=== PATIENT | male | born 1980 | race Caucasian/White ===

== ENCOUNTER 2021-04-09 18:34 | Inpatient (IN) ==
[2021-04-09 19:57] LABS: Basophils # 0.1 K/mcL (0.0-0.2); Basophils % 0.8 %; Eosinophils # 0.1 K/mcL (0.0-0.6); Eosinophils % 1.1 %; Hematocrit 44.9 % (37.5-50.1); Hemoglobin 15.5 g/dL (12.9-16.9); Immature Granulocytes % 0.3 % (0-4); Lymphocytes # 1.3 K/mcL (0.6-4.6); Lymphocytes % 20.2 %; Mean Corpuscular HGB Conc 34.5 g/dL (31.6-35.5); Mean Corpuscular Hemoglobin 31.8 pg (28.0-33.3); Mean Corpuscular Volume 92.2 fL (83.0-100.0); Mean Platelet Volume 10.3 fL (9.4-12.4); Monocytes # 0.6 K/mcL (0.0-1.3); Neutrophils # 4.3 K/mcL (1.6-8.9); Platelet Count 248 K/mcL (140-400); Red Blood Count 4.87 M/mcL (4.19-5.50); Red Cell Distribution Width 11.9 % (11.5-14.5); Segmented Neutrophils % 67.6 %; White Blood Count 6.4 K/mcL (4.3-11.1)
[2021-04-09 20:27] LABS: Acetaminophen < 10 mcg/mL (10-20); BUN/Creatinine Ratio 15 (6-26); Blood Urea Nitrogen 18 mg/dL (6-20); Carbon Dioxide 21 mEq/L (23-29); Chloride 106 mEq/L (98-107); Chol/HDL Ratio 4.7 (0-4.9); Cholesterol 145 mg/dL (< 200); Ethanol < 10 mg/dL (Less than 10); Glucose 84 mg/dL (70-105); HDL Cholesterol 31 mg/dL (40-59); LDL Cholesterol,Calculated 91 mg/dL (< 100); Osmolality,Calculated 285 (280-300); Potassium 3.6 mEq/L (3.5-5.1); Salicylate < 2.5 mg/dL (15.0-30.0); Sodium 137 mEq/L (136-145); Triglycerides 115 mg/dL (< 150); eGFR For African Americans > 60 (> 60); eGFR For Non-African Americans > 60 (> 60)
[2021-04-09 20:33] LABS: Bilirubin,Urine Small (Negative); Blood,Urine Negative (Negative); Clarity,Urine Clear (Clear); Color,Urine Yellow (Yellow); Glucose,Urine (UA) Normal (Normal); Ketones,Urine 10 mg/dL (Negative); Leukocyte Esterase,Urine Trace (Negative); Mucus,Urine Few per lpf (None-Few); Nitrite,Urine Negative (Negative); PH,Urine 5.5 pH Units (5.0-8.0); Protein,Urine 50 mg/dL (Neg-Trace); RBC,Urine 0-3 per hpf (0-3); Specific Gravity,Urine > 1.030 (1.010-1.025); Squamous Epithelial Cell,Urine Few per hpf (None-Few)
[2021-04-09 20:36] LABS: Amphetamine Screen,Urine Negative ng/mL (Cutoff=1000); Barbiturate Screen,Urine Negative ng/mL (Cutoff=200); Benzodiazepines Screen,Urine Negative ng/mL (Cutoff=200); Cannabinoid Screen,Urine Negative ng/mL (Cutoff = 50); Cocaine Screen,Urine Negative ng/mL (Cutoff= 300); Opiate Screen,Urine Negative ng/mL (Cutoff=300); Phencyclidine Screen,Urine Negative ng/mL (Cutoff=25)
[2021-04-09 21:18] LABS: Estimated Average Glucose 114 mg/dl; Hemoglobin A1C 5.6 %
[2021-04-10 00:07] LABS: Adenovirus Not Detected (Not Detect); Bordetella Pertussis Not Detected (Not Detect); Chlamydophila pneumoniae Not Detected (Not Detect); Coronavirus 229E Not Detected (Not Detect); Coronavirus HKU1 Not Detected (Not Detect); Coronavirus NL63 Not Detected (Not Detect); Coronavirus OC43 Not Detected (Not Detect); Human Metapneumovirus Not Detected (Not Detect); Human Rhinovirus/Enterovirus Not Detected (Not Detect); Influenza A Subtype 2009 H1 Not Detected (Not Detect); Influenza B Not Detected (Not Detect); Mycoplasma pneumoniae Not Detected (Not Detect); Parainfluenza Virus 1 Not Detected (Not Detect); Parainfluenza Virus 2 Not Detected (Not Detect); Parainfluenza Virus 3 Not Detected (Not Detect); Parainfluenza Virus 4 Not Detected (Not Detect); Respiratory Syncytial Virus Not Detected (Not Detect); SARS-CoV-2 Not Detected (Not Detect)
[2021-04-10] MEDS ORDERED: Haloperidol Lactate 5 MG/ML VIAL IM PRN (00:44)
[2021-04-10] MEDS ORDERED: Acetaminophen 325 MG TABLET PO PRN (00:44)
[2021-04-10] MEDS ORDERED: *HR* LORazepam 2 MG/ML VIAL IM PRN (00:44)
[2021-04-10] MEDS: hydrOXYzine pamoate 25 MG CAPSULE PO PRN ×2 (01:32→20:52)
[2021-04-10] MEDS: QUEtiapine Fumarate 25 MG TABLET PO PRN ×2 (01:56→20:52)
[2021-04-10] MEDS: *HR* LORazepam 1 MG TABLET PO PRN (09:25)
[2021-04-10] MEDS: haloperidoL 5 MG TABLET PO PRN (09:26)
[2021-04-10] MEDS ORDERED: Mag Hydrox/Al Hydrox/Simeth 30 ML UDC PO PRN (12:44)
[2021-04-10] MEDS ORDERED: MOM Conc 10 ML UD.LIQ PO PRN (12:44)
[2021-04-10] MEDS ORDERED: haloperidoL 5 MG TABLET PO SCH (21:00)
[2021-04-11] MEDS: haloperidoL 5 MG TABLET PO PRN (10:04)
[2021-04-11] MEDS: *HR* LORazepam 1 MG TABLET PO PRN (10:04)
[2021-04-11] MEDS: Sennosides/Docusate Sodium TABLET PO SCH (11:19)
[2021-04-11] MEDS: *HR* Metformin 500 MG TABLET PO SCH (16:59)
[2021-04-11] MEDS: Lactobacillus 1 EACH CAP.SPRINK PO SCH (20:38)
[2021-04-11] MEDS: RisperiDAL 3 MG TABLET PO SCH (20:38)
[2021-04-11] MEDS: QUEtiapine Fumarate 25 MG TABLET PO PRN (21:44)
[2021-04-12] MEDS: Cholecalciferol (D-3) 1,000 UNIT (25MCG) TABLET PO SCH (09:00)
[2021-04-12] MEDS: Sennosides/Docusate Sodium TABLET PO SCH (09:00)
[2021-04-12] MEDS: haloperidoL 5 MG TABLET PO SCH (09:00)
[2021-04-12] MEDS: Lactobacillus 1 EACH CAP.SPRINK PO SCH ×2 (09:01→20:51)
[2021-04-12] MEDS: *HR* Metformin 500 MG TABLET PO SCH ×2 (09:01→16:45)
[2021-04-12] MEDS: Nicotine 7 MG PATCH.TD24 TD SCH (10:05)
[2021-04-12] MEDS: RisperiDAL 3 MG TABLET PO SCH (20:51)
[2021-04-12] MEDS: QUEtiapine Fumarate 25 MG TABLET PO PRN ×2 (20:52→22:02)
[2021-04-12] MEDS: hydrOXYzine pamoate 25 MG CAPSULE PO PRN (20:52)
[2021-04-13] MEDS: *HR* Metformin 500 MG TABLET PO SCH ×2 (14:49→17:13)
[2021-04-13] MEDS: Sennosides/Docusate Sodium TABLET PO SCH (14:49)
[2021-04-13] MEDS: Lactobacillus 1 EACH CAP.SPRINK PO SCH ×2 (14:49→21:35)
[2021-04-13] MEDS: Cholecalciferol (D-3) 1,000 UNIT (25MCG) TABLET PO SCH (14:49)
[2021-04-13] MEDS: haloperidoL 5 MG TABLET PO SCH (14:49)
[2021-04-13] MEDS: Nicotine 7 MG PATCH.TD24 TD SCH (14:49)
[2021-04-13] MEDS: RisperiDAL 3 MG TABLET PO SCH (21:35)
[2021-04-13] MEDS: QUEtiapine Fumarate 25 MG TABLET PO PRN (21:35)
[2021-04-13] MEDS: hydrOXYzine pamoate 25 MG CAPSULE PO PRN (22:51)
[2021-04-14] MEDS: Cholecalciferol (D-3) 1,000 UNIT (25MCG) TABLET PO SCH (08:34)
[2021-04-14] MEDS: Lactobacillus 1 EACH CAP.SPRINK PO SCH ×2 (08:35→20:58)
[2021-04-14] MEDS: *HR* Metformin 500 MG TABLET PO SCH ×2 (08:35→17:27)
[2021-04-14] MEDS: Sennosides/Docusate Sodium TABLET PO SCH (08:36)
[2021-04-14] MEDS: haloperidoL 5 MG TABLET PO SCH (08:36)
[2021-04-14] MEDS: Nicotine 7 MG PATCH.TD24 TD SCH ×2 (08:37→09:03)
[2021-04-14] MEDS: Divalproex (24 HR) 500 MG TABLET PO SCH (20:58)
[2021-04-14] MEDS: QUEtiapine Fumarate 25 MG TABLET PO PRN (20:58)
[2021-04-14] MEDS: risperiDONE 1 MG TABLET PO SCH (20:58)
[2021-04-15] MEDS: Lactobacillus 1 EACH CAP.SPRINK PO SCH ×2 (10:29→20:28)
[2021-04-15] MEDS: haloperidoL 5 MG TABLET PO SCH ×2 (10:29→18:46)
[2021-04-15] MEDS: Cholecalciferol (D-3) 1,000 UNIT (25MCG) TABLET PO SCH (10:29)
[2021-04-15] MEDS: Nicotine 7 MG PATCH.TD24 TD SCH ×2 (10:29→18:44)
[2021-04-15] MEDS: Sennosides/Docusate Sodium TABLET PO SCH (10:29)
[2021-04-15] MEDS: *HR* Metformin 500 MG TABLET PO SCH ×2 (10:29→17:30)
[2021-04-15] MEDS: QUEtiapine Fumarate 25 MG TABLET PO PRN (20:27)
[2021-04-15] MEDS: risperiDONE 1 MG TABLET PO SCH (20:28)
[2021-04-15] MEDS: Divalproex (24 HR) 500 MG TABLET PO SCH (20:28)
[2021-04-16] MEDS: Cholecalciferol (D-3) 1,000 UNIT (25MCG) TABLET PO SCH (09:25)
[2021-04-16] MEDS: *HR* Metformin 500 MG TABLET PO SCH ×2 (09:26→16:42)
[2021-04-16] MEDS: haloperidoL 5 MG TABLET PO SCH (09:26)
[2021-04-16] MEDS: Nicotine 7 MG PATCH.TD24 TD SCH (09:27)
[2021-04-16] MEDS: Lactobacillus 1 EACH CAP.SPRINK PO SCH ×2 (09:27→20:23)
[2021-04-16] MEDS: Sennosides/Docusate Sodium TABLET PO SCH (09:27)
[2021-04-16] MEDS: risperiDONE 1 MG TABLET PO SCH ×2 (09:29→20:23)
[2021-04-16] MEDS: Divalproex (24 HR) 500 MG TABLET PO SCH (20:21)
[2021-04-16] MEDS: QUEtiapine Fumarate 25 MG TABLET PO PRN (20:23)
[2021-04-17] MEDS: Lactobacillus 1 EACH CAP.SPRINK PO SCH ×2 (08:11→22:04)
[2021-04-17] MEDS: Sennosides/Docusate Sodium TABLET PO SCH (08:12)
[2021-04-17] MEDS: haloperidoL 5 MG TABLET PO SCH (08:12)
[2021-04-17] MEDS: Cholecalciferol (D-3) 1,000 UNIT (25MCG) TABLET PO SCH (08:12)
[2021-04-17] MEDS: *HR* Metformin 500 MG TABLET PO SCH ×2 (08:12→17:01)
[2021-04-17] MEDS: Nicotine 7 MG PATCH.TD24 TD SCH (08:13)
[2021-04-17] MEDS: risperiDONE 1 MG TABLET PO SCH ×2 (08:13→22:04)
[2021-04-17] MEDS: Divalproex (24 HR) 500 MG TABLET PO SCH (22:04)
[2021-04-18] MEDS: Lactobacillus 1 EACH CAP.SPRINK PO SCH ×2 (10:08→20:27)
[2021-04-18] MEDS: Cholecalciferol (D-3) 1,000 UNIT (25MCG) TABLET PO SCH (10:08)
[2021-04-18] MEDS: haloperidoL 5 MG TABLET PO SCH (10:08)
[2021-04-18] MEDS: risperiDONE 1 MG TABLET PO SCH ×2 (10:08→20:28)
[2021-04-18] MEDS: Sennosides/Docusate Sodium TABLET PO SCH (10:08)
[2021-04-18] MEDS: *HR* Metformin 500 MG TABLET PO SCH ×2 (10:08→16:37)
[2021-04-18] MEDS: Nicotine 7 MG PATCH.TD24 TD SCH (10:09)
[2021-04-18] MEDS: Divalproex (24 HR) 500 MG TABLET PO SCH (20:27)
[2021-04-18] MEDS: QUEtiapine Fumarate 25 MG TABLET PO PRN (20:28)
[2021-04-19] MEDS: Nicotine 7 MG PATCH.TD24 TD SCH (08:09)
[2021-04-19] MEDS: Lactobacillus 1 EACH CAP.SPRINK PO SCH ×2 (08:09→20:05)
[2021-04-19] MEDS: Sennosides/Docusate Sodium TABLET PO SCH (08:09)
[2021-04-19] MEDS: *HR* Metformin 500 MG TABLET PO SCH ×2 (08:09→16:57)
[2021-04-19] MEDS: Cholecalciferol (D-3) 1,000 UNIT (25MCG) TABLET PO SCH (08:09)
[2021-04-19] MEDS: risperiDONE 1 MG TABLET PO SCH ×2 (08:09→20:05)
[2021-04-19] MEDS: haloperidoL 5 MG TABLET PO SCH (08:09)
[2021-04-19] MEDS: Divalproex (24 HR) 500 MG TABLET PO SCH (20:05)
[2021-04-20] MEDS: QUEtiapine Fumarate 25 MG TABLET PO PRN ×2 (01:05→20:28)
[2021-04-20] MEDS: Sennosides/Docusate Sodium TABLET PO SCH ×2 (10:05→11:00)
[2021-04-20] MEDS: *HR* Metformin 500 MG TABLET PO SCH ×3 (10:06→16:02)
[2021-04-20] MEDS: risperiDONE 1 MG TABLET PO SCH ×3 (10:06→20:28)
[2021-04-20] MEDS: Lactobacillus 1 EACH CAP.SPRINK PO SCH ×3 (10:06→20:28)
[2021-04-20] MEDS: Cholecalciferol (D-3) 1,000 UNIT (25MCG) TABLET PO SCH ×2 (10:06→11:00)
[2021-04-20] MEDS: Nicotine 7 MG PATCH.TD24 TD SCH ×2 (10:06→16:17)
[2021-04-20] MEDS: haloperidoL 5 MG TABLET PO SCH ×2 (10:06→11:00)
[2021-04-20] MEDS: Divalproex (24 HR) 500 MG TABLET PO SCH (20:29)
[2021-04-21] MEDS: risperiDONE 1 MG TABLET PO SCH ×3 (08:49→20:27)
[2021-04-21] MEDS: haloperidoL 5 MG TABLET PO SCH (08:49)
[2021-04-21] MEDS: Sennosides/Docusate Sodium TABLET PO SCH (08:49)
[2021-04-21] MEDS: Lactobacillus 1 EACH CAP.SPRINK PO SCH ×2 (08:52→20:28)
[2021-04-21] MEDS: Nicotine 7 MG PATCH.TD24 TD SCH (08:52)
[2021-04-21] MEDS: Cholecalciferol (D-3) 1,000 UNIT (25MCG) TABLET PO SCH (08:52)
[2021-04-21] MEDS: *HR* Metformin 500 MG TABLET PO SCH ×2 (08:52→16:13)
[2021-04-21] MEDS: QUEtiapine Fumarate 25 MG TABLET PO PRN (20:27)
[2021-04-21] MEDS: Divalproex (24 HR) 500 MG TABLET PO SCH (20:28)
[2021-04-22] MEDS: Nicotine 7 MG PATCH.TD24 TD SCH (09:26)
[2021-04-22] MEDS: risperiDONE 1 MG TABLET PO SCH (09:27)
[2021-04-22] MEDS: Lactobacillus 1 EACH CAP.SPRINK PO SCH (09:28)
[2021-04-22] MEDS: *HR* Metformin 500 MG TABLET PO SCH ×2 (09:28→16:47)
[2021-04-22] MEDS: Sennosides/Docusate Sodium TABLET PO SCH (09:28)
[2021-04-22] MEDS: haloperidoL 5 MG TABLET PO SCH (09:28)
[2021-04-22] MEDS: Cholecalciferol (D-3) 1,000 UNIT (25MCG) TABLET PO SCH (09:28)
[2021-04-22 12:44] VITALS: BP 100/64; PULSE 67; TEMP 98; O2SAT 98
== END 2021-04-22 17:15 | disposition home or self-care (01) | DRG 750 ==
LOC: EMEROOARM 18:34 → 1ANU 04-10 00:33
PROVIDERS: ADMIT Psychiatry & Neurology Psychiatry; ATTEND Psychiatry & Neurology Psychiatry

== ENCOUNTER 2021-11-21 02:15 | Inpatient (IN) ==
[2021-11-21 03:08] LABS: Bilirubin,Urine Negative (Negative); Blood,Urine Negative (Negative); Clarity,Urine Clear (Clear); Color,Urine Light-Yellow (Yellow); Glucose,Urine (UA) Normal (Normal); Ketones,Urine Negative (Negative); Leukocyte Esterase,Urine Negative (Negative); Nitrite,Urine Negative (Negative); Protein,Urine Negative (Neg-Trace); Specific Gravity,Urine 1.018 (1.010-1.025); Urobilinogen,Urine Normal (Normal)
[2021-11-21 03:30] LABS: Amphetamine Screen,Urine Negative ng/mL (Cutoff=1000); Barbiturate Screen,Urine Negative ng/mL (Cutoff=200); Benzodiazepines Screen,Urine Negative ng/mL (Cutoff=200); Cannabinoid Screen,Urine Negative ng/mL (Cutoff = 50); Cocaine Screen,Urine Negative ng/mL (Cutoff= 300); Opiate Screen,Urine Negative ng/mL (Cutoff=300); Phencyclidine Screen,Urine Negative ng/mL (Cutoff=25)
[2021-11-21 03:43] LABS: Basophils # 0.1 K/mcL (0.0-0.2); Basophils % 0.9 %; Eosinophils # 0.1 K/mcL (0.0-0.6); Eosinophils % 1.4 %; Hematocrit 37.3 % (37.5-50.1); Hemoglobin 12.7 g/dL (12.9-16.9); Immature Granulocytes % 0.4 % (0-4); Lymphocytes # 1.9 K/mcL (0.6-4.6); Lymphocytes % 24.2 %; Mean Corpuscular Hemoglobin 32.2 pg (28.0-33.3); Mean Corpuscular Volume 94.7 fL (83.0-100.0); Mean Platelet Volume 10.6 fL (9.4-12.4); Monocytes % 12.4 %; Neutrophils # 4.7 K/mcL (1.6-8.9); Platelet Count 246 K/mcL (140-400); Red Blood Count 3.94 M/mcL (4.19-5.50); Red Cell Distribution Width 13.9 % (11.5-14.5); Segmented Neutrophils % 60.7 %; White Blood Count 7.8 K/mcL (4.3-11.1)
[2021-11-21 03:44] LABS: Acetaminophen < 10 mcg/mL (10-20); BUN/Creatinine Ratio 26 (6-26); Blood Urea Nitrogen 17 mg/dL (6-20); Calcium 9.3 mg/dL (8.6-10.3); Carbon Dioxide 28 mEq/L (23-29); Chloride 104 mEq/L (98-107); Chol/HDL Ratio 2.8 (0-4.9); Cholesterol 165 mg/dL (< 200); Ethanol < 10 mg/dL (Less than 10); Glucose 123 mg/dL (70-105); HDL Cholesterol 60 mg/dL (40-59); LDL Cholesterol,Calculated 74 mg/dL (< 100); Osmolality,Calculated 289 (280-300); Potassium 4.3 mEq/L (3.5-5.1); Salicylate < 2.5 mg/dL (15.0-30.0); Sodium 138 mEq/L (136-145); Triglycerides 156 mg/dL (< 150); eGFR For African Americans > 60 (> 60); eGFR For Non-African Americans > 60 (> 60)
[2021-11-21 04:23] LABS: Estimated Average Glucose 105 mg/dl; Hemoglobin A1C 5.3 %
[2021-11-21 05:19] LABS: Influenza A PCR Negative (Negative); Influenza B PCR Negative (Negative); Resp. Syncytial Virus PCR Negative (Negative)
[2021-11-21 05:21] LABS: SARS-CoV-2 by PCR (In House) Negative (Negative)
[2021-11-21] MEDS ORDERED: *HR* LORazepam 2 MG/ML VIAL IM PRN (06:45)
[2021-11-21] MEDS ORDERED: haloperidoL 5 MG TABLET PO PRN (06:45)
[2021-11-21] MEDS ORDERED: *HR* LORazepam 1 MG TABLET PO PRN (06:45)
[2021-11-21] MEDS ORDERED: Haloperidol Lactate 5 MG/ML VIAL IM PRN (06:45)
[2021-11-21] MEDS ORDERED: Mag Hydrox/Al Hydrox/Simeth 30 ML UDC PO PRN (11:36)
[2021-11-21] MEDS ORDERED: MOM Conc 10 ML UD.LIQ PO PRN (11:36)
[2021-11-21] MEDS ORDERED: QUEtiapine Fumarate 25 MG TABLET PO PRN (13:45)
[2021-11-21] MEDS ORDERED: risperiDONE 1 MG TABLET PO SCH (21:00)
[2021-11-21] MEDS: Divalproex (24 HR) 500 MG TABLET PO SCH (22:18)
[2021-11-22] MEDS ORDERED: risperiDONE 1 MG TABLET PO SCH (09:00)
[2021-11-22] MEDS: GuaiFENesin Liq 200 MG/10 ML UDC PO PRN ×2 (12:22→20:38)
[2021-11-22] MEDS: Divalproex (24 HR) 500 MG TABLET PO SCH (20:29)
[2021-11-22] MEDS: OLANZapine 10 MG TAB.RAPDIS PO SCH (20:30)
[2021-11-23] MEDS: OLANZapine 10 MG TAB.RAPDIS PO SCH ×2 (08:35→20:13)
[2021-11-23] MEDS: Divalproex (24 HR) 500 MG TABLET PO SCH (20:13)
[2021-11-23] MEDS: GuaiFENesin Liq 200 MG/10 ML UDC PO PRN (20:13)
[2021-11-24] MEDS: GuaiFENesin Liq 200 MG/10 ML UDC PO PRN ×2 (08:46→20:45)
[2021-11-24] MEDS: OLANZapine 10 MG TAB.RAPDIS PO SCH ×2 (08:46→20:43)
[2021-11-24] MEDS: Divalproex (24 HR) 500 MG TABLET PO SCH (20:42)
[2021-11-25] MEDS: OLANZapine 10 MG TAB.RAPDIS PO SCH ×2 (08:59→20:35)
[2021-11-25] MEDS: OLANZapine 5 MG TAB.RAPDIS PO SCH (17:36)
[2021-11-25] MEDS: GuaiFENesin Liq 200 MG/10 ML UDC PO PRN (20:35)
[2021-11-25] MEDS: Divalproex (24 HR) 500 MG TABLET PO SCH (20:35)
[2021-11-26] MEDS: OLANZapine 10 MG TAB.RAPDIS PO SCH ×2 (08:43→20:46)
[2021-11-26] MEDS: OLANZapine 5 MG TAB.RAPDIS PO SCH (17:00)
[2021-11-26] MEDS: Divalproex (24 HR) 500 MG TABLET PO SCH (20:46)
[2021-11-26] MEDS: GuaiFENesin Liq 200 MG/10 ML UDC PO PRN (21:13)
[2021-11-27] MEDS: OLANZapine 10 MG TAB.RAPDIS PO SCH ×2 (08:27→20:57)
[2021-11-27] MEDS: OLANZapine 5 MG TAB.RAPDIS PO SCH (17:48)
[2021-11-27] MEDS: Divalproex (24 HR) 500 MG TABLET PO SCH (20:57)
[2021-11-28] MEDS: OLANZapine 10 MG TAB.RAPDIS PO SCH ×2 (08:35→20:50)
[2021-11-28] MEDS: OLANZapine 5 MG TAB.RAPDIS PO SCH (17:35)
[2021-11-28] MEDS: Divalproex (24 HR) 500 MG TABLET PO SCH (20:50)
[2021-11-28] MEDS: hydrOXYzine pamoate 25 MG CAPSULE PO PRN (20:52)
[2021-11-29] MEDS: OLANZapine 10 MG TAB.RAPDIS PO SCH ×2 (09:10→20:44)
[2021-11-29] MEDS: OLANZapine 5 MG TAB.RAPDIS PO SCH (18:08)
[2021-11-29] MEDS: Divalproex (24 HR) 500 MG TABLET PO SCH (20:44)
[2021-11-29] MEDS: hydrOXYzine pamoate 25 MG CAPSULE PO PRN (20:58)
[2021-11-30] MEDS: OLANZapine 10 MG TAB.RAPDIS PO SCH ×2 (07:36→20:02)
[2021-11-30] MEDS: OLANZapine 5 MG TAB.RAPDIS PO SCH (18:30)
[2021-11-30] MEDS: Divalproex (24 HR) 500 MG TABLET PO SCH (20:02)
[2021-12-01] MEDS: OLANZapine 10 MG TAB.RAPDIS PO SCH ×2 (08:51→20:52)
[2021-12-01] MEDS: OLANZapine 5 MG TAB.RAPDIS PO SCH (17:34)
[2021-12-01] MEDS: Divalproex (24 HR) 500 MG TABLET PO SCH (20:52)
[2021-12-02] MEDS: OLANZapine 10 MG TAB.RAPDIS PO SCH (08:50)
[2021-12-02 09:56] VITALS: BP 124/80; PULSE 59; TEMP 97.2; O2SAT 100
== END 2021-12-02 14:15 | disposition other institution (70) | DRG 750 ==
LOC: EMEROOARM 02:15 → 1ANU 08:11
PROVIDERS: ADMIT Psychiatry & Neurology Psychiatry; ATTEND Psychiatry & Neurology Psychiatry